=== PATIENT | female | born 1990 | race African-American/Black ===

== ENCOUNTER 2018-01-23 02:43 | Inpatient (IN) | payer OTHER ==
[2018-01-23] MEDS ORDERED: Butorphanol Tartrate 1 MG/ML VIAL SLOW IVP PRN (03:33)
[2018-01-23] MEDS ORDERED: Promethazine HCl 25 MG/ML VIAL IM PRN ×2 (03:33→11:46)
[2018-01-23] MEDS ORDERED: Acetaminophen 500 MG TAB PO PRN (03:33)
[2018-01-23] MEDS ORDERED: Ondansetron HCl/PF 4 MG/2 ML Vial IVP PRN ×2 (03:33→11:46)
[2018-01-23] MEDS ORDERED: Misoprostol 200 MCG TAB PR PRN (03:33)
[2018-01-23] MEDS ORDERED: NS / Oxytocin 40 units/1000ml 1,000 ML IV PRN (03:33)
[2018-01-23] MEDS ORDERED: Methylergonovine 0.2 MG/ML VIAL IM PRN (03:33)
[2018-01-23] MEDS ORDERED: HYDROcodone/Acetaminophen 5/325 mg Tablet PO PRN ×2 (03:33)
[2018-01-23] MEDS ORDERED: Lidocaine 1% (PF) 30 ML VIAL SC PRN (03:33)
[2018-01-23] MEDS ORDERED: Ibuprofen 800 MG TAB PO PRN (03:33)
[2018-01-23] MEDS ORDERED: Carboprost 250 MCG/ML AMP IM PRN (03:33)
[2018-01-23] MEDS ORDERED: Diphenoxylate HCl/Atropine Tablet PO PRN ×2 (03:33)
[2018-01-23] MEDS: Lactated Ringer's 1,000 ML IV SCH ×3 (03:36→20:00)
[2018-01-23 03:37] VITALS: BMI 41.6
--- NOTE | 2018-01-23 03:37 | PDOC.LDHP ---
Labor and Delivery H&P Chief complaint: loss of fluid HPI: 27 y/o at 36w5d presents with LOF. Patient reports she had continuous leaking of fluid in bed followed by a large gush when she got up. Denies regular ctx, VB, or decreased FM. Di/Di twins. Care in [place], here visiting father. Review of record shows both babies reportedly about 6lbs with normal growth, both vertex at last appointment. Desires vaginal delivery. ROS neg for HEENT, CV, pulm, GI, , neuro, psych, skin, musculoskeletal, or constitutional symptoms other than mentioned above. OB History Details: 2 prior term SVDs Current complications: di/di twins Past Medical History: None Current medications: pre- vitamins Previous surgical history: none Social history: none - Physical Exam Vital signs reviewed and normal: yes General: NAD, resting Lungs: nonlabored breathing Abdomen: gravid Extremeties: no edema FHT: category 1 (120s/130s, mod variability, + accels, no decels) [place] contractions every: occasional - Vaginal Exam cm dilated: 4 Effacement: 25% Station: -3 - OB Labs Blood type: A RH: positive Antibody Screen: negative HIV: negative RPR: negative HEPSAg: negative 1 hour GCT: negative GBS: unknown Rubella: immune - Assessment L&D Assessment: premature rupture of membranes - Plan Plan: admit to L&D, labor augmentation if indicated, GBS antibiotic prophylaxis , informed consent obtained, anesthesia consult for pain management (if desired) -: Bedside ultrasound confirms vertex/vertex presentation
[2018-01-23] MEDS ORDERED: Penicillin G Potassium 5 MILL.UNITS in Sodium Chloride 0.9% 100 ML IVPB SCH (03:45)
[2018-01-23 04:00] LABS: Hemoglobin 10.8 g/dL (12.0-16.0); Mean Corpuscular HGB CONC 33.8 g/dL (32.0-36.0); Mean Corpuscular Volume 82.7 fL (78.0-98.0); Mean Platelet Volume 7.9 fL (7.4-10.4); Platelet Count 281 thou/uL (130-400); RBC Distribution Width 14.7 % (11.5-14.5); Red Blood Cell (RBC) Count 3.87 mill/uL (4.20-5.40); White Blood Cell (WBC) Count 8.3 thou/uL (4.8-10.8)
[2018-01-23] MEDS ORDERED: Betamet Acet/Betamet Na Ph 30 MG/5 ML VIAL IM SCH (04:00)
[2018-01-23 04:27] LABS: HBSAg Index 0.24 S/CO (0-0.99); Hep B Surf Ag Non-Reactive S/CO (NonReactive)
[2018-01-23 05:00] LABS: Syphilis Antibody Nonreactive (Nonreactive); Syphilis Antibody Index 0.06 S/CO (<1.00 Non-Reactive)
[2018-01-23] MEDS: Penicillin G 2.5 MILL.units 2.5 MILL.UNITS in Premix Bag 1 BAG IVPB SCH ×2 (05:42→09:34)
[2018-01-23] MEDS: NS w/ Oxytocin 10 units 500 ML IV SCH (07:25)
[2018-01-23] MEDS ORDERED: Bupivacaine 0.75% 13.4 ML, fentaNYL Citrate/PF 400 MCG in Sodium Chloride 0.9% 78.6 ML EPIDURAL SCH (08:45)
[2018-01-23] MEDS ORDERED: DISCONTINUE ALL PREVIOUS NARCOTICS FS SCH (08:45)
[2018-01-23] MEDS ORDERED: ePHEDrine/0.9% NaCl/PF SYRINGE 50 mg/10 ml SLOW IVP PRN (11:46)
[2018-01-23] MEDS ORDERED: Acetaminophen 325 MG TAB PO PRN (11:46)
[2018-01-23] MEDS ORDERED: Naloxone HCl 0.4 mg/ml Vial IVP PRN ×2 (11:46)
[2018-01-23] MEDS ORDERED: diphenhydrAMINE 50 MG/ML VIAL IVP PRN (11:46)
[2018-01-23] MEDS ORDERED: Lactated Ringer's 500 ML IV PRN (11:46)
[2018-01-23] MEDS ORDERED: Eucerin (Mineral Oil/Petrolatum,White) 30 gm Jar TOP PRN (11:46)
[2018-01-23] MEDS ORDERED: fentaNYL Citrate/PF 400 MCG, Bupivacaine 0.5% 20 ML in Sodium Chloride 0.9% 72 ML EPIDURAL SCH (12:00)
[2018-01-23] MEDS ORDERED: Communication Order-Pharmacy FS SCH (12:00)
[2018-01-23] MEDS ORDERED: Bicitra 30 ML UDCUP ONE (12:33)
[2018-01-23] MEDS ORDERED: Bicitra 30 ML UDCUP PO SCH (12:45)
[2018-01-23 13:02] LABS: ALT (SGPT) 7 U/L (8-55); AST (SGOT) 16 U/L (5-34); Albumin 3.1 g/dL (3.5-5.0); Alkaline Phosphatase 123 U/L (40-150); Anion Gap 14 mmol/L (10-20); BUN (Urea Nitrogen) 5 mg/dL (7.0-18.7); Bilirubin, Total 0.5 mg/dL (0.2-1.2); Calc. Creatinine Clearance 219 mL/min (70-130); Calcium 8.9 mg/dL (7.8-10.44); Carbon Dioxide 18 mmol/L (22-29); Chloride 108 mmol/L (98-107); Estimated GFR-MDRD Greater than 90; Globulin 2.9 g/dL (2.4-3.5); Glucose 82 mg/dL (70-105); Potassium 3.6 mmol/L (3.5-5.1); Sodium 136 mmol/L (136-145)
[2018-01-23] MEDS ORDERED: Fentanyl 100 MCG/2 ML VIAL ONE (14:29)
--- NOTE | 2018-01-23 15:45 | PDOC.OPDEL ---
OB Operative/Delivery Note Delivery Dr/Surgeon: Stephen/Pako(attending) Assist: Murali Lopes(M3)/Arnold Rosales(M3) Pre-Delivery Diagnosis: active labor, other (Pre-term labor, twins, cephalic/ cephalic) Procedure/Post Delivery Dx: spontaneous vaginal delivery (x2) Anesthesia: epidural - Findings A Sex: female - 1 min: 7 - 5 min: 9 B Sex: male - 1 min: 8 - 5 min: 9 - Additional Findings/Plan Placenta delivered: spontaneous (x2,esteban. Dichorionic.) Repaired Obstetrical Laceration: none Estimated blood loss: 600mL Compilations/Other Findings: Delivering physician Dr. Mitchell with Dr. Min supervising. Twin A delivered at 15 :00, Twin B at 15:26, placenta at 15:33. No nuchal cordx2, NICU team present, anesthesia team present, counts correct, no vaginal packs, mother alert during process. Post delivery plan: routine recovery (To floor, per routine)
[2018-01-23 15:49] LABS: Actual Bicarbonate (HCO3a) 22.7 mEq/L (22-28); Analyzer IN Cardio OR; Base Excess (BEa) -4.1 mEq/L (-2.0 to +3.0)
[2018-01-23] MEDS ORDERED: Adacel (T-DAP) 0.5 ML VIAL IM ONE (15:52)
[2018-01-23] MEDS ORDERED: Milk Of Magnesia 30 ML UDCUP PO PRN (15:52)
[2018-01-23] MEDS ORDERED: Bisacodyl 10 MG SUPP PR PRN (15:52)
[2018-01-23] MEDS ORDERED: Preparation H Ointment 28 GM TUBE PR PRN (15:52)
[2018-01-23] MEDS ORDERED: Acetaminophen/Codeine 30-300mg Tablet PO PRN (15:52)
[2018-01-23] MEDS ORDERED: Benzocaine/Menthol 20-0.5% 60 ML CAN TOP PRN (15:52)
[2018-01-23] MEDS ORDERED: Varicella virus, LIVE 0.5 ML VIAL SC ONE (15:52)
[2018-01-23] MEDS ORDERED: diphenhydrAMINE 25 MG CAP PO PRN (15:52)
[2018-01-23] MEDS ORDERED: Lanolin Ointment 7 GM TUBE TOP PRN (15:52)
[2018-01-23] MEDS ORDERED: Measles/Mumps/Rubella 10 MCG/0.5 ML VIAL SC ONE (15:52)
[2018-01-23] MEDS ORDERED: NS / Oxytocin 40 units/1000ml 1,000 ML IV SCH (16:00)
[2018-01-23] MEDS: Ferrous Sulfate 325 MG TAB PO SCH (19:06)
[2018-01-23] MEDS: Docusate Calcium (SURFAK) 240 MG CAP PO SCH (21:44)
[2018-01-23] MEDS: Ibuprofen 800 MG TAB PO SCH (21:44)
[2018-01-23] MEDS ORDERED: Bupivacaine/Epinephrine 0.25% 30 ML VIAL ONE (22:00)
[2018-01-24] MEDS: NS w/ Oxytocin 10 units 500 ML IV SCH (05:06)
[2018-01-24] MEDS: Lactated Ringer's 1,000 ML IV SCH ×3 (05:06→18:30)
[2018-01-24] MEDS: Ibuprofen 800 MG TAB PO SCH ×3 (05:10→21:51)
[2018-01-24 06:01] LABS: Hemoglobin 10.4 g/dL (12.0-16.0); Mean Corpuscular HGB CONC 31.8 g/dL (32.0-36.0); Mean Corpuscular Hemoglobin 26.7 pg (27.0-31.0); Mean Corpuscular Volume 84.1 fL (78.0-98.0); Platelet Count 270 thou/uL (130-400); RBC Distribution Width 14.6 % (11.5-14.5); White Blood Cell (WBC) Count 22.9 thou/uL (4.8-10.8)
--- NOTE | 2018-01-24 06:42 | PDOC.PP ---
Post Progress Note Post Day #: 1 Subjective: Doing well. Also stated her father (who was admitted as well) has now been discharged home- so she is relieved of that PO intake tolerated: yes Flatus: yes Ambulation: yes Vital Signs (12 hours) Temp Pulse Resp BP 01/24/18 04:50 97.9 F 73 20 97/65 01/24/18 00:50 98.3 F 75 20 108/56 L 01/23/18 21:00 98.0 F 92 20 110/55 L 01/23/18 20:00 97.6 F 81 20 127/76 01/23/18 19:00 97.8 F 91 20 127/74 Weight Weight 258 lb - Physical Examination Cardiovascular: no m/r/g Respiratory: clear to auscultation bilaterally Abdominal: + bowel sounds, lochia, no distention, appropriately TTP Extremities: negative homans (B) Neurological: no gross focal deficits Psychiatric: A&Ox3, normal affect Result Diagrams: 01/24/18 05:34 01/23/18 03:39 Additional Labs: Post Labs Blood Type A POSITIVE 01/23/18 03:39 Hep Bs Antigen Non-Reactive S/CO (NonReactive) 01/23/18 03:39 (1) Twin delivered vaginally Code(s): O30.009 - TWIN , UNSP NUM PLCNTA & AMNIO SACS, UNSP TRIMESTER Status: Acute - Assessment/Plan Twin delievered vaginally. HCT was actually stable. No evidence infection/ metritis. We will obs until tomorrow AM (PPD 2). babies well. One cord gas clotted off and was unable to read from delivery (per RT)
[2018-01-24] MEDS: Ferrous Sulfate 325 MG TAB PO SCH ×2 (07:36→14:32)
[2018-01-24] MEDS: Penicillin G 2.5 MILL.units 2.5 MILL.UNITS in Premix Bag 1 BAG IVPB SCH (07:37)
[2018-01-24] MEDS: Docusate Calcium (SURFAK) 240 MG CAP PO SCH ×2 (09:09→21:51)
[2018-01-24] MEDS: Prenatal Vitamin 1 TAB PO SCH (09:09)
[2018-01-24] MEDS ORDERED: Acetaminophen/Codeine 30-300mg Tablet PO PRN (19:14)
[2018-01-24] MEDS: Acetaminophen/Codeine 30-300mg Tablet PO PRN (19:33)
[2018-01-25] MEDS: Acetaminophen/Codeine 30-300mg Tablet PO PRN (03:43)
[2018-01-25] MEDS: Ibuprofen 800 MG TAB PO SCH (06:23)
--- NOTE | 2018-01-25 06:23 | PDOC.PP ---
Post Progress Note Post Day #: PPD#2 Subjective: No complaints. Ready for home. PO intake tolerated: yes Ambulation: yes Vital Signs (12 hours) Temp Pulse Resp BP 01/24/18 19:33 97.6 F 85 20 128/78 Weight Weight 117.027 kg - Physical Examination General: NAD Respiratory: non-labored breathing Psychiatric: normal affect Result Diagrams: 01/24/18 05:34 01/23/18 03:39 Additional Labs: Post Labs Blood Type A POSITIVE 01/23/18 03:39 Hep Bs Antigen Non-Reactive S/CO (NonReactive) 01/23/18 03:39 - Assessment/Plan Doing well s/p twin at 36 weeks. DC home. Precautions. Will f/u with her doctor back in [facility]. in 4-6 weeks.
[2018-01-25] MEDS: Lactated Ringer's 1,000 ML IV SCH ×2 (06:30→12:32)
[2018-01-25] MEDS: NS w/ Oxytocin 10 units 500 ML IV SCH (06:30)
[2018-01-25] MEDS: Ferrous Sulfate 325 MG TAB PO SCH (07:29)
[2018-01-25 07:45] VITALS: BP 107/53; TEMP 98.3
[2018-01-25] MEDS: Docusate Calcium (SURFAK) 240 MG CAP PO SCH (09:13)
[2018-01-25] MEDS: Prenatal Vitamin 1 TAB PO SCH (09:13)
== END 2018-01-25 13:00 | disposition home or self-care (01) | DRG 775 ==
LOC: L&D/OP 02:43 → L&D 03:38 → 3SW 18:04
PROVIDERS: ADMIT Obstetrics & Gynecology; ATTEND Obstetrics & Gynecology
PROC: 10E0XZZ Delivery of Products of Conception, External Approach (ICD-10-PCS; principal; 2018-01-23)
DX: O42.913 Preterm premature rupture of membranes, unspecified as to length of time between rupture and onset of labor, third trimester (principal); O60.14X0 Preterm labor third trimester with preterm delivery third trimester, not applicable or unspecified; Z3A.36 36 weeks gestation of pregnancy; Z37.2 Twins, both liveborn; O30.003 Twin pregnancy, unspecified number of placenta and unspecified number of amniotic sacs, third trimester
CPT/HCPCS: 36415; 51702; 76815; 80053; 82805; 85027; 86780; 86850; 86900; 86901; 87340; 88307; 99285; J0702; J2210; J2405; J2540; J3010; J3490; J7050